=== PATIENT | male | born 1955 | race Caucasian/White ===

== ENCOUNTER → 2024-03-26 11:45 | Outpatient (REF) | payer MEDICARE, SELFPAY | LOC: PAVMRI 11:45 | PROVIDERS: ATTENDING PHYSICIAN Specialist | DX: R97.20 Elevated prostate specific antigen [PSA] (principal) | CPT/HCPCS: 72197; A9575 ==

== ENCOUNTER → 2024-04-19 15:00 | Outpatient (REF) | payer MEDICARE, SELFPAY | LOC: CLAB 15:00 | PROVIDERS: ATTENDING PHYSICIAN Specialist | DX: R97.20 Elevated prostate specific antigen [PSA] (principal) | CPT/HCPCS: 88305; 88344 ==

== ENCOUNTER 2025-03-19 16:30 | Emergency (ER) | payer MEDICARE, SELFPAY ==
[2025-03-19] VITALS (7 sets, daily range): BP systolic 121–131; BP diastolic 65–71; BMI 29.3
[2025-03-19] MEDS: TYLENOL 650 MG PO (16:40)
[2025-03-19 17:03] LABS: Urine Character Clear (Clear)
[2025-03-19 17:17] LABS: Urine Red Blood Cell 0-2 /HPF (0-2); Urine White Cell 0-2 /HPF (0-5)
[2025-03-19 17:22] LABS: ALT (SGPT) 27 U/L (0-50); AST (SGOT) 23 U/L (17-59); Albumin 4.3 g/dl (3.5-5.0); Alkaline Phosphatase 77 U/L (38-126); Blood Urea Nitrogen 24 mg/dl (9-20); Calcium 9.4 mg/dl (8.4-10.2); Carbon Dioxide 25 mmol/L (22-30); Chloride 103 mmol/L (98-107); Glucose 140 mg/dl (70-99); Potassium 4.3 mmol/L (3.5-5.1); Sodium 134 mmol/L (135-145); Total Protein 6.7 g/dl (6.3-8.2); eGFR > 60.00
[2025-03-19 17:25] LABS: Hematocrit 32.9 % (39.0-52.0); Hemoglobin 11.6 g/dL (13.0-18.0); Mean Corp Hgb Conc. 35.3 g/dL (33.0-37.0); Mean Corpuscular Volume 91.6 fL (80.0-94.0); Platelet Count 251 10^3/uL (130-400); Red Cell Dist. Width 13.1 % (11.5-14.5)
[2025-03-19 17:28] LABS: Nucleated Red Blood Cells % 0 % (-)
--- NOTE | 2025-03-19 20:05 | ED.GENMED ---
Addendum entered and electronically signed by PANCHO Hester 03/21/25 07:06:
positive in progress. report faxed to [email or web address]
Original Note:
History of Present Illness
General
Chief Complaint: Fever
Time Seen by Provider: 03/19/25 19:58
History of Present Illness
History of Present Illness:
Patient presents to the emergency department with fever and knee swelling. Reports that he had a total knee replacement on March [address] Bliss. Reports fevers and redness started today.
Past History
Past History
ED Past Medical History: HTN and Hypercholesterolemia
ED Past Surgical History: Orthopedic
Phy Exam
Physical Exam
Physical Exam:
General: No acute distress
Head: NCAT
Neck, Normal in appearance, no swelling
Respiratory: No Respiratory distress
Abdomen: No distension
Ext: The left knee is warm and swollen. It is hot. Limited range of motion. There is no purulence from incision. There is pitting edema throughout the lower extremity. Palpable pedal pulses. Sensation intact to light touch throughout. 5 out
of 5 strength with dorsiflexion and plantarflexion compartments are soft.
Neuro: FRAZIER, AOx4
Psych: Normal affect
Skin: Normal color
Sepsis
Sepsis Screening
Sepsis Assessment: Sepsis
Sepsis Screen
Sepsis Screen: Sepsis
Date: 03/19/25
Time: 22:39
Course
Orders/Labs/Results
Orders:
Orders
03/19/25 16:36
Electrocardiogram (*1) Urgent
Reason for Study: Other
Other Reason for Exam: Possible Sepsis
03/19/25 16:37
EKG- Treatment ONCE
03/19/25 16:39
Acetaminophen [Tylenol] 650 mg .ROUTE .STK-MED ONE
03/19/25 16:40
Acetaminophen [Tylenol] 650 mg PO NOW STA
03/19/25 16:50
Complete Blood Count/With Diff Urgent
Comprehensive Metabolic Panel Urgent
Lactic Acid Q4H
Comment: ON ICE, CANCEL 2ND ORDER IF FIRST LACTIC ACID LEVEL <2
Urinalysis Reflex To Culture Urgent
Date Specimen was Collected: 03/19/25
Time Specimen was Collected: 16:37
Urine Microscopic Reflex Cult Urgent
Blood Culture Q20M
[place] Source: Blood/Venous
Specimen Description:
Comment: Urgent from separate sites. If patient screens positive for possible sepsis
Urine Culture Urgent
[place] Source: U
Specimen Description:
Date Specimen was Collected: 03/19/25
Time Specimen was Collected: 16:37
03/19/25 20:13
CefTRIAXone [Rocephin] 2,000 mg IV NOW STA
03/19/25 20:23
Blood Culture Q20M
[place] Source: Blood/Venous
Specimen Description:
Comment: Urgent from separate sites. If patient screens positive for possible sepsis
03/19/25 20:34
Blood Culture Urgent
[place] Source: Blood/Venous
Specimen Description:
03/19/25 20:35
Sterile Water [Sterile Water For Injection] 20 ml .ROUTE .STK-MED
03/19/25 20:39
Vancomycin [Vancocin] 1,500 mg 0.9% Sodium Chloride 500 ml [Nss] 500 ml IV NOW
Abnormal Lab Results
03/19/25
16:50
WBC 25.5 H 10^3/uL
(4.8-10.8)
RBC 3.59 L 10^6/uL
(4.70-6.10)
Hgb 11.6 L g/dL
(13.0-18.0)
Hct 32.9 L %
(39.0-52.0)
MCH 32.3 H pg
(27.0-31.0)
Abs Immat Gran (auto) 0.2 H 10^3/uL
(0-0.05)
Absolute Neuts (auto) 23.5 H 10^3/uL
(1.4-6.5)
Absolute Lymphs (auto) 0.7 L 10^3/uL
(1.2-3.4)
Absolute Monos (auto) 1.1 H 10^3/uL
(0.1-0.6)
Immature Gran % 0.8 H %
(0-0.5)
Neutrophils % 92.1 H %
(42.2-75.2)
Lymphocytes % 2.6 L %
(20.5-51.1)
Sodium 134 L mmol/L
(135-145)
BUN 24 H mg/dl
(9-20)
Glucose 140 H mg/dl
(70-99)
Total Bilirubin 1.4 H mg/dl
(0.2-1.3)
Urine Ketones 1+ A
(Negative)
Ur Occult Blood Reflex 1+ A
(Negative)
Leukocyte Esterase Rfl 1+ A
(Negative)
Urine Bacteria (Reflex) Many A
(Negative)
Urine Albumin (Reflex) 3+ A
(Neg - Trace)
03/19/25 16:50
03/19/25 16:50
Vital Signs
Initial and Last Documented VS:
Initial Vital Signs
Temp Pulse Resp Pulse Ox
102.7 F H 120 19 95
03/19/25 16:34 03/19/25 16:34 03/19/25 16:34 03/19/25 16:34
Last Documented Vital Signs
Temp Pulse Resp BP Pulse Ox
98.9 F 103 22 131/71 96
03/19/25 21:09 03/19/25 22:00 03/19/25 22:00 03/19/25 22:03/19/25 22:00
*Pulse Oximetry
SaO2: 95
Oxygen Mode of Delivery: Room air
Patient hypoxic: no
*Critical Care Note
Total Time (30-74mins, 75-104mins- exclusive of procedures): Not Applicable
ED Attending Note
ED Attending Note
ED Attending Note:
Discussed case with Dr. Doyle with [facility] orthopedics. Recommends transfer to [place] for admission and orthopedic consultation. Will order broad-spectrum antibiotics.
-
Portions of this chart may have been created with voice recognition software.� Occasional wrong word or��sound alike� substitutions may have occurred due to the inherent limitations of voice recognition software.
Discharge Plan
Departure
Patient Disposition: Acute Care Hospital
Date of Disposition: 03/19/25
Time of Disposition: 20:39
Discharge Problem:
Postoperative infection of knee
Prescriptions:
No Action
losartan 50 mg Tablet
50 mg PO DAILY
metformin 500 mg Tablet
250 mg PO BID
meloxicam 15 mg Tablet
15 mg PO DAILY
testosterone cypionate 100 mg/mL Oil
50 mg IM WEEKLY
amlodipine 2.5 mg Tablet
2.5 mg PO DAILY
tamsulosin 0.4 mg Capsule
0.4 mg PO DAILY
simvastatin 5 mg Tablet
5 mg PO DAILY
omeprazole 20 mg Capsule,Delayed Release(Dr/Ec)
20 mg PO DAILY
allopurinol 300 mg Tablet
300 mg PO DAILY
tadalafil [Cialis] 5 mg Tablet
5 mg PO DAILY
omega-3 acid ethyl esters 1 gram Capsule
4 cap PO DAILY
[place] Thyroid 30 mg Tablet
30 mg PO DAILY
Referrals:
Vianey Saucedo DO [Family Provider]
Hospital Transfer
Other hospital: [facility]
I certify that the patient requires transfer: Yes
Discussed case with accepting physician: Kaci
Reason for transfer: other
Interventions
Interventions:
*Risk Screen - Suicide Last Done: 03/19/25 16:34
*General Assessment Last Done: 03/19/25 16:34
*Neglect/Abuse Screening Last Done: 03/19/25 16:34
*ED- Fall Risk Assessment Last Done: 03/19/25 20:13
*ED COVID-19 Vaccine History Last Done: 03/19/25 16:34
ED- Neurological Assessment Last Done: 03/19/25 20:13
ED-Skin Assessment Last Done: 03/19/25 20:13
Discharge Date and Time
Print Language: ALGERIAN
[2025-03-19] MEDS: ROCEPHIN 2000 MG IV (20:49)
[2025-03-19] MEDS: VANCOCIN 530 MG IV (21:13)
[2025-03-20] VITALS: BP 127/66
[2025-03-20 00:42] VITALS: BP 150/80
[2025-03-20 01:00] VITALS: BP 144/72
[2025-03-20 02:00] VITALS: BP 153/73
--- NOTE | 2025-03-23 15:23 | ED.ADDNOTE ---
Addendum entered and electronically signed by PANCHO Hester 03/27/25 10:20:
Full blood culture results with sensitivities faxed to [place] [phone]
Original Note:
ED Addendum
ED Addendum
ED Addendum Note:
Blood culture from ED visit growing E. coli. Result faxed to [place] by [facility]. Fax #: [phone]
== END 2025-03-20 02:09 | disposition short-term general hospital (02) ==
LOC: EMR 16:30
PROVIDERS: Emergency Medicine; EMERGENCY PHYSICIAN Emergency Medicine; FAMILY PHYSICIAN Obstetrics & Gynecology
DX: T84.54XA Infection and inflammatory reaction due to internal left knee prosthesis, initial encounter (principal); Y79.2 Prosthetic and other implants, materials and accessory orthopedic devices associated with adverse incidents; I10 Essential (primary) hypertension; E78.00 Pure hypercholesterolemia, unspecified; Z96.652 Presence of left artificial knee joint
CPT/HCPCS: 99285; 96374; 96375; 80053; 81003; 81015; 83605; 85025; 87040; 87077; 87086; 87154; 87186; 87205; 93005